=== PATIENT | female | born 1985 | race Caucasian/White ===

== ENCOUNTER 2018-02-16 04:37 | Inpatient (IN) | payer BC ==
--- NOTE | 2018-02-16 05:03 | HP ---
General Information - Reason for Visit Labor - General Information Maternal Age: 32 Grav: 2 Para: 1 SAB: 1 IEA: 0 Estimated Due Date: 02/09/18 Determined By: Early Ultrasound Gestational Age in Weeks/Days: 41 weeks Maternal Blood Type and Rh: AB Positive - Results this Serology/RPR Result: Non-Reactive Rubella Result: Immune HBsAg Result: Negative HIV Result: Negative GBS Culture Result: Negative Past Medical History Delivery History: Hx Uncomplicated Vaginal Delivery Delivery History Comment: 06/2012 SAB 01/2014 8lb [place]. [facility] [place] Arianne [place]iano CNM 10/2015 8lb 9oz [place]. [facility] [place] Sherman CNM Pertinent Past Medical History: See Records Past Medical History Comment: environmental allergies Pertinent Past Surgical History: See Records Past Surgical History Comment: 02/2012 [place] tooth extraction Pertinent Family History: See Records Family History Comment: Father . Colon Cancer - Antepartal Records Antepartal Records: Reviewed, Uncomplicated Review of Systems Constitutional: Uncomfortable - with UCs CV Complaint: No Respiratory: Shortness of Breath: No Gastrointestinal: No Nausea/Vomiting, Normal Bowel Movement Genitourinary: No Dysuria, No Bleeding, No Leaking Fluid Musculoskeletal: Contractions Neurological: No Headache, No Visual Changes Movement: Normal Exam Allergies/Adverse Reactions: Allergies No Known Allergies Allergy (Verified 02/16/18 04:57) BP 126/69 HR 79 RR 20 T 97.8 SpO2 99% on RA - Measurements Height: 5 ft 3 in Weight: 151 lb Weight in lbs: 151.698696 Body Mass Index (BMI): 26.7 Pre- Weight: 123 lb 15.984 oz Weight Gained This : 27.001 lbs and 0 ozs - Exam Breast: Breast Exam Deferred CVA: No CVA Tenderness Extremities: No Edema Heart: Normal Rhythm/Heart Sounds HEENT: No Significant Findings Lungs: Clear Bilaterally Rectal: Rectal Exam Deferred Reflexes: DTR 2+ Thyroid: No Thyromegaly - Abdominal Exam Abdomen Exam: Non-Tender, Fundal Height Consistent with Dates - Ultrasound/Biophysical Profile Ultrasound Status: Not Done Targeted Exam Findings See L&D Outpatient Visit Provider Note for Findings: N/A Estimated Weight: 8-8.5lbs Cervical Exam: 7cm Effacement: 100% Station: 0 Presenting Part: Vertex Membrane Status: Intact EFM Findings - External Monitor Findings Baseline Heart Rate: 150 External Monitor Findings: Accelerations Present, No Pattern of Variable or Late Decelerations, Variability Moderate, Baseline Stable External Monitor Findings Comment: No evidence of metabolic acidemia Contractions: Regular, Moderate, Strong Contraction Frequency: q 3-4 min Assessment/Plan - Assessment IUP at 41 weeks in labor No evidence of metabolic acidemia - Plan Plan: Observe Plan Comment: Pt prefers expectant management. Anticipate - Date/Time of Admission Date of Admission: 02/16/18 Time of Admission: 05:05
[2018-02-16] MEDS ORDERED: Acetaminophen TAB* 325 MG PO PRN (08:02)
[2018-02-16] MEDS ORDERED: Misoprostol TAB* 200 MCG PR ONE (08:02)
[2018-02-16] MEDS ORDERED: Witch Hazel PAD* JAR TOPICAL PRN (08:02)
[2018-02-16] MEDS ORDERED: Dibucaine 1% 28.35 GM TUBE PR PRN (08:02)
[2018-02-16] MEDS ORDERED: Glycerin ADULT SUPP PR PRN (08:02)
[2018-02-16] MEDS ORDERED: OXYTOCIN* 10 UNITS/ML 1 ML VIAL IM ONE (08:02)
--- NOTE | 2018-02-16 08:08 | PROCNOTE ---
[facility] OB: Delivery Note - Delivery A Date of : 02/16/18 Time of : 07:34 Sex: Female Score 1 Minute: 9 Score 5 Minutes: 9 Gestational Age in Weeks and Days at Delivery: 41 Weeks and 0 Days Delivery Method: Spontaneous Vaginal Labor: Spontaneous Did Patient attempt ?: N/A, No Previous Amniotic Fluid: Meconium Estimated Blood Loss: 400 Anesthesia/Analgesia: None - Nursery Level of Nursery: Regular/Bedside - Perineum Perineal Injury: 1st Degree Perineal Injury Comment: repaired with 3-0 Rapide under local infiltration 1% lidocaine Perineal Repair: By Delivering Practioner - Events Delivery Events of Note: Post- Bleeding - Meds Given - 10units IM pitocin given followed by 800mcg Cytotec. Fundus then firmed to massage and remained firm - Additional Delivery Notes Additional Delivery Notes: Pt admitted in labor. Amniotomy to meconium stained fluid at 8cm per pt request with expected progression to complete. Length of labor 5 hours, 39 min. Pushed x 4 min. liveborn female. Slow, controlled delivery of head. OA to ERNESTO. Shoulders followed easily with strong maternal push. [place] vigorous with spontaneous cry. HR> 110bpm. Delivered to maternal abdomen. Cord clamped x 2 and cut by FOB when pulsations ceased. Spontaneous delivery intact placenta. Membranes complete. Fundus slow to firm to massage and brisk bleeding noted. 10units IM pitocin administered. Intermittent brisk flow continued and fundus atonic when had removed. 800mcg Cytotec given per rectum. Fundus firmed to massage and remained firm. Repair as above. EBL 400mL. At time of note mother and in stable condition. Breast feeding initiated
[2018-02-16] MEDS ORDERED: Lidocaine 1%* 5 ML VIAL ONE (09:57)
[2018-02-16] MEDS: Docusate CAP* 100 MG PO SCH ×3 (10:03→21:33)
[2018-02-16] MEDS: Ibuprofen TAB* 600 MG PO PRN (13:29)
[2018-02-17] MEDS: Simethicone TAB* 80 MG TAB.CHEW PO SCH (00:13)
[2018-02-17 06:50] LABS: ABS Basophils 0.1 10^3/ul (0-0.2); ABS Eosinophils 0.1 10^3/ul (0-0.6); ABS Lymphocytes 2.9 10^3/ul (1.0-4.8); ABS Neutrophils 9.1 10^3/ul (1.5-7.7); ABS Nucleated RBC 0 10^3/ul; Hematocrit 30 % (35-47); Hemoglobin 10.4 g/dl (12.0-16.0); Lymphocyte % 22.2 % (25-47); Mean Corpuscular HGB Conc 34 g/dl (31-36); Mean Corpuscular Hemoglobin 31 pg (27-31); Mean Corpuscular Volume 90 fL (80-97); Nucleated Red Blood Cells % 0; Platelet Count 168 10^3/ul (150-450); Red Blood Count 3.38 10^6/ul (4.00-5.40); Red Cell Distribution Width 14 % (10.5-15); White Blood Count 13.2 10^3/ul (3.5-10.8)
[2018-02-17] MEDS: Docusate CAP* 100 MG PO SCH ×3 (08:36→20:26)
[2018-02-17] MEDS ORDERED: Ferrous Gluconate TAB* 324 MG TAB PO SCH (09:00)
[2018-02-18] MEDS: Ibuprofen TAB* 600 MG PO PRN (03:59)
[2018-02-18 08:30] VITALS: BP 105/78
[2018-02-18] MEDS: Docusate CAP* 100 MG PO SCH (09:06)
== END 2018-02-18 11:17 | disposition home or self-care (01) | DRG 560 ==
LOC: MCHOBOUT 04:37 → MCHOB 04:52
PROVIDERS: ADMIT Midwife; ATTEND Midwife
PROC: 10E0XZZ Delivery of Products of Conception, External Approach (ICD-10-PCS; principal; 2018-02-16)
PROC: 0HQ9XZZ Repair Perineum Skin, External Approach (ICD-10-PCS; 2018-02-16)
PROC: 10907ZC Drainage of Amniotic Fluid, Therapeutic from Products of Conception, Via Natural or Artificial Opening (ICD-10-PCS; 2018-02-16)
PROC: 4A1HXCZ Monitoring of Products of Conception, Cardiac Rate, External Approach (ICD-10-PCS; 2018-02-16)
DX: O48.0 Post-term pregnancy (principal); O72.1 Other immediate postpartum hemorrhage; Z3A.41 41 weeks gestation of pregnancy; Z37.0 Single live birth; Z91.048 Other nonmedicinal substance allergy status; Z80.0 Family history of malignant neoplasm of digestive organs; O77.0 Labor and delivery complicated by meconium in amniotic fluid; O70.0 First degree perineal laceration during delivery
CPT/HCPCS: 36415; 85025; A9270-GY; J2590

== ENCOUNTER 2022-02-24 10:02 | Inpatient (IN) ==
[2022-02-24] MEDS ORDERED: Lactated Ringers 1000 ml BAG 1,000 ML IV ONE (10:38)
[2022-02-24] MEDS ORDERED: Buffered Lidocaine 1% SYRIN 1 ml INTRADERM ONE (10:38)
[2022-02-24] MEDS ORDERED: Lactated Ringers 1000 ml BAG 1,000 ML IV SCH (11:00)
[2022-02-24] MEDS ORDERED: Oxytocin in LR 20 UNITS/1,000 ML BAG IVPB SCH ×2 (11:00→19:00)
[2022-02-24 11:17] LABS: ABS Lymphocytes 1.4 10^3/ul (1.0-4.8); ABS Monocytes 0.4 10^3/ul (0-0.8); ABS Neutrophils 4.8 10^3/ul (1.5-7.7); Eosinophil % 0.7 %; Hematocrit 37 % (35-47); Hemoglobin 12.7 g/dL (12.0-16.0); Lymphocyte % 21.4 %; Mean Corpuscular HGB Conc 34 g/dL (31-36); Mean Corpuscular Hemoglobin 31 pg (27-31); Mean Corpuscular Volume 92 fL (80-97); Mean Platelet Volume 9.3 fL (7.4-10.4); Platelet Count 170 10^3/uL (150-450); Red Blood Count 4.04 10^6 /uL (3.70-4.87); Red Cell Distribution Width 15 % (10-15); White Blood Count 6.7 10^3/uL (3.5-10.8)
[2022-02-24 12:36] LABS: Urine Benzodiazepine Screen None Detected (None Detect); Urine Cannabinoids Screen None Detected (None Detect); Urine Opiates Screen None Detected (None Detect)
[2022-02-25] MEDS ORDERED: Methylergonovine 0.2 mg AMPULE 1 ml AMP IM ONE (02:17)
[2022-02-25] MEDS ORDERED: Witch Hazel PAD JAR TOPICAL PRN (02:17)
[2022-02-25] MEDS ORDERED: Dibucaine 1% OINT 28.35 GM TUBE PR PRN (02:17)
[2022-02-25] MEDS ORDERED: Oxytocin in LR 20 UNITS/1,000 ML BAG IVPB SCH (03:00)
[2022-02-25] MEDS ORDERED: Lactated Ringers 1000 ml BAG 1,000 ML IV SCH (03:00)
[2022-02-25] MEDS ORDERED: Lidocaine 1% MPF 5 ML VIAL ONE (06:06)
[2022-02-25 09:57] LABS: ABS Basophils 0.1 10^3/ul (0-0.2); ABS Eosinophils 0.1 10^3/ul (0-0.6); ABS Monocytes 0.9 10^3/ul (0-0.8); ABS Neutrophils 10.9 10^3/ul (1.5-7.7); Eosinophil % 0.4 %; Hematocrit 34 % (35-47); Hemoglobin 11.4 g/dL (12.0-16.0); Lymphocyte % 14.1 %; Mean Corpuscular HGB Conc 34 g/dL (31-36); Mean Corpuscular Hemoglobin 30 pg (27-31); Mean Corpuscular Volume 90 fL (80-97); Mean Platelet Volume 9.1 fL (7.4-10.4); Nucleated Red Blood Cells % 0.1; Platelet Count 174 10^3/uL (150-450); Red Blood Count 3.77 10^6 /uL (3.70-4.87); Red Cell Distribution Width 14 % (10-15)
[2022-02-26 06:19] LABS: ABS Eosinophils 0.2 10^3/ul (0-0.6); ABS Lymphocytes 2.5 10^3/ul (1.0-4.8); ABS Monocytes 0.8 10^3/ul (0-0.8); ABS Neutrophils 6.8 10^3/ul (1.5-7.7); Eosinophil % 1.6 %; Hematocrit 33 % (35-47); Hemoglobin 10.9 g/dL (12.0-16.0); Lymphocyte % 24.2 %; Mean Corpuscular HGB Conc 33 g/dL (31-36); Mean Corpuscular Hemoglobin 31 pg (27-31); Mean Corpuscular Volume 92 fL (80-97); Mean Platelet Volume 9.4 fL (7.4-10.4); Platelet Count 175 10^3/uL (150-450); Red Blood Count 3.57 10^6 /uL (3.70-4.87); Red Cell Distribution Width 15 % (10-15); White Blood Count 10.4 10^3/uL (3.5-10.8)
[2022-02-26 12:18] VITALS: BP 110/69
== END 2022-02-26 12:02 | disposition home or self-care (01) | DRG 560 ==
LOC: MCHOBOUT 10:02 → MCHOB 10:32
PROVIDERS: ADMIT Midwife; ATTEND Midwife